=== PATIENT | male | born 1940 | race Hispanic/Latino ===

== ENCOUNTER 2018-08-17 16:20 | Emergency (ER) | payer MEDICARE ==
[2018-08-17 17:27] LABS: APPEARANCE,URINE Cloudy (CLEAR); BASOPHILS % (AUTO) 1.1 % (0.0-5.0); BILIRUBIN,URINE Negative (NEGATIVE); COLOR,URINE Yellow (YELLOW); EOSINOPHILS % (AUTO) 0.6 % (0.0-8.0); GLUCOSE, URINE (UA) Negative (NEGATIVE); HEMATOCRIT 44.8 % (42-54); KETONES,URINE Negative (NEGATIVE); LEUKOCYTE ESTERASE ,URINE Negative (NEGATIVE); LYMPHOCYTES % (AUTO) 30.6 % (21.0-51.0); MEAN CORPUSCULAR HEMOGLOBIN 31.4 pg (27.0-33.0); MEAN CORPUSCULAR VOLUME 92.5 fL (79-99); MONOCYTES % (AUTO) 8.1 % (3.0-13.0); NEUTROPHILS % (AUTO) 59.6 % (40.0-77.0); NITRATE,URINE Negative (NEGATIVE); NUCLEATED RED BLOOD CELLS 0.1 % (0.0-0.19); OCCULT BLOOD,URINE Negative (NEGATIVE); PH,URINE >=9.0 (5.0-8.0); PLATELET COUNT (AUTO) 274 K/uL (130-400); PROTEIN,URINE Negative (NEGATIVE); RED BLOOD CELL COUNT(AUTO) 4.84 MIL/uL (4.50-6.20); WHITE BLOOD COUNT (AUTO) 9.6 K/uL (4.8-10.8)
[2018-08-17 17:36] LABS: AMORPHOUS SEDIMENT,UR Many /LPF (None Seen); BACTERIA,URINE Few /HPF (None Seen); RBC,URINE None Seen /HPF (0-1); SQUAMOUS EPITHELIAL CELL,UR None Seen /HPF (0-2); WBC,URINE 0-1 /HPF (0-1)
[2018-08-17 18:40] LABS: CREATININE 0.3 mg/dL (0.5-1.5); POTASSIUM 4.2 mmol/L (3.5-5.1)
[2018-08-17 18:45] LABS: ALBUMIN 3.6 g/dL (3.5-5.0); BILIRUBIN,TOTAL 0.4 mg/dL (0.2-1.0); TOTAL PROTEIN, SERUM 6.9 g/dL (6.0-8.3)
== END 2018-08-17 20:37 | disposition home or self-care (01) ==
LOC: EDH 16:20
DX: I10 Essential (primary) hypertension (principal); R33.9 Retention of urine, unspecified; G12.22 Progressive bulbar palsy; E78.5 Hyperlipidemia, unspecified
CPT/HCPCS: 36415; 51702; 80053; 81001; 84484; 85025; 93005

== ENCOUNTER 2020-06-19 13:41 | Inpatient (IN) | payer MEDICARE ==
[~2020-06-19] VITALS: Ht 170.2 cm; Wt 81.7 kg
[2020-06-19 14:30] LABS: BASOPHILS % (AUTO) 0.3 % (0.0-5.0); EOSINOPHILS % (AUTO) 0.3 % (0.0-8.0); HEMATOCRIT 49.3 % (42-54); LYMPHOCYTES % (AUTO) 27.6 % (21.0-51.0); MEAN CORPUSCULAR HEMOGLOBIN 30.9 pg (27.0-33.0); MEAN CORPUSCULAR HGB CONC 33.1 g/dL (32.0-36.0); MEAN CORPUSCULAR VOLUME 93.5 fL (79-99); MONOCYTES % (AUTO) 8.6 % (3.0-13.0); NEUTROPHILS % (AUTO) 62.7 % (40.0-77.0); PLATELET COUNT (AUTO) 282 K/uL (130-400); RED BLOOD CELL COUNT(AUTO) 5.27 MIL/uL (4.50-6.20); RED CELL DISTRIBUTION WIDTH 13.5 % (11.0-15.5); WHITE BLOOD COUNT (AUTO) 19.1 K/uL (4.8-10.8)
[2020-06-19 14:41] LABS: CREATININE 0.4 mg/dL (0.5-1.5); POTASSIUM 3.5 mmol/L (3.5-5.1)
[2020-06-19 14:43] LABS: PARTIAL THROMBOPLASTIN TIME 28.9 SEC (26.3-35.5)
[2020-06-19 14:50] LABS: ABG BASE EXCESS -4.3 mmol/L (-2.0-3.0); ABG HCO3 26.1 mmol/L (21.0-28.0); ABG OXYGEN SATURATION 99.6 % (95.0-99.0); ABG PCO2 73 mmHg (35-48)
[2020-06-19 14:50] LABS: ALBUMIN 3.2 g/dL (3.5-5.0); BILIRUBIN,TOTAL 0.6 mg/dL (0.2-1.0); TOTAL PROTEIN, SERUM 7.8 g/dL (6.0-8.3); TROPONIN I 0.1 ng/mL (0.00-0.06)
[2020-06-19] MEDS ORDERED: LEVOFLOXACIN 500 MG/D5W 100 ML 100 ML ONE (15:03)
[2020-06-19] MEDS ORDERED: METHYLPREDNISOLONE SOD SUCC 125MG/2ML VIAL ONE (15:03)
[2020-06-19] MEDS ORDERED: LORAZEPAM 2 MG/ML 1 ML VIAL ONE (15:04)
[2020-06-19 15:20] LABS: APPEARANCE,URINE Clear (CLEAR); BILIRUBIN,URINE Negative (NEGATIVE); COLOR,URINE Yellow (YELLOW); GLUCOSE, URINE (UA) 500 mg/dL (NEGATIVE); KETONES,URINE Negative (NEGATIVE); LEUKOCYTE ESTERASE ,URINE Negative (NEGATIVE); NITRATE,URINE Negative (NEGATIVE); OCCULT BLOOD,URINE Small (NEGATIVE); PH,URINE 6.5 (5.0-8.0); PROTEIN,URINE POS 2+ mg/dL (NEGATIVE); UROBILINOGEN,URINE 0.2 mg/dL (0.2-1.0)
[2020-06-19 15:31] LABS: BACTERIA,URINE Rare /HPF (None Seen); WBC,URINE 0-1 /HPF (0-1)
[2020-06-19 15:32] LABS: MUCUS,URINE Rare LPF (None Seen); SQUAMOUS EPITHELIAL CELL,UR Rare /HPF (0-2)
[2020-06-19 15:53] LABS: INR 0.91 (0.85-1.15); PROTHROMBIN TIME 9.9 SEC (9.6-11.6)
[2020-06-19] MEDS ORDERED: DOXYCYCLINE 100MG+NS 250ML IV SCH (16:00)
[2020-06-19] MEDS ORDERED: LACTULOSE 20 GM/30 ML UDCUP PO PRN (16:00)
[2020-06-19] MEDS ORDERED: GUAIFENESIN-DM 200/20 MG 10 ML PO PRN (16:00)
[2020-06-19] MEDS ORDERED: HYDRALAZINE HCL 20 MG/ML VIAL IV PRN (16:00)
[2020-06-19] MEDS ORDERED: ACETAMINOPHEN 325 MG TAB PO PRN ×2 (16:00)
[2020-06-19] MEDS ORDERED: NITROGLYCERIN 0.4 MG SL TAB SL PRN (16:00)
[2020-06-19] MEDS ORDERED: DIPHENHYDRAMINE HCL 25 MG CAPSULE PO PRN (16:00)
[2020-06-19] MEDS ORDERED: ACETAMINOPHEN-CODEINE 300/30MG TAB PO PRN ×2 (16:00)
[2020-06-19] MEDS ORDERED: MAG HYDROX/AL HYDROX/SIMETH ES 30 ML SUSP UDCUP PO PRN (16:00)
[2020-06-19] MEDS ORDERED: ERGOCALCIFEROL (VITAMIN D2) 50,000 UNIT CAPSULE PO SCH (16:00)
[2020-06-19] MEDS ORDERED: METHYLPREDNISOLONE SOD SUCC 125MG/2ML VIAL IV SCH (16:00)
[2020-06-19] MEDS ORDERED: ONDANSETRON HCL 4 MG/2 ML VIAL IV PRN (16:00)
[2020-06-19] MEDS ORDERED: AZITHROMYCIN 500MG+NS 250ML 250 ML IV SCH (16:00)
[2020-06-19] MEDS ORDERED: CEFTRIAXONE SODIUM 1 GM IVP SCH (16:00)
[2020-06-19] MEDS ORDERED: DEXAMETHASONE SOD PHOSPHATE 4 MG/ML 1ML VIAL IVP SCH (16:00)
[2020-06-19] MEDS ORDERED: ALBUTEROL INHALER 90MCG/INH IH ONE (16:01)
[2020-06-19 16:13] LABS: ABG BASE EXCESS -3.1 mmol/L (-2.0-3.0); ABG HCO3 22.5 mmol/L (21.0-28.0); ABG OXYGEN SATURATION 94.3 % (95.0-99.0); ABG PCO2 42 mmHg (35-48)
[2020-06-19] MEDS ORDERED: DOXYCYCLINE 100MG+NS 250ML 250 ML IV SCH (16:30)
[2020-06-19] MEDS ORDERED: IPRATROPIUM/ALBUTEROL SULFATE 3 ML SOLUTION IH SCH (18:00)
[2020-06-19] MEDS ORDERED: CEFTRIAXONE SODIUM 1 GM ONE (18:37)
[2020-06-19] MEDS ORDERED: DEXAMETHASONE SOD PHOSPHATE 4 MG/ML 1ML VIAL ONE (18:37)
[2020-06-19] MEDS ORDERED: SODIUM CHLORIDE 0.9% 100 ML IV ONE (18:38)
[2020-06-19] MEDS ORDERED: AZITHROMYCIN 500MG+NS 250ML 250 ML IV ONE (19:49)
[2020-06-19] MEDS ORDERED: DOXYCYCLINE 100MG+NS 250ML 250 ML IV ONE (19:49)
[2020-06-19] MEDS ORDERED: BENZONATATE 100 MG CAPSULE PO SCH (21:00)
[2020-06-19] MEDS ORDERED: FAMOTIDINE/PF 20 MG/2 ML VIAL IV SCH (21:00)
[2020-06-19] MEDS ORDERED: ACETYLCYSTEINE 600 MG CAPSULE PO SCH (21:00)
[2020-06-20] MEDS ORDERED: METHYLPREDNISOLONE SOD SUCC 125MG/2ML VIAL ONE (01:46)
[2020-06-20] MEDS ORDERED: CEFTRIAXONE SODIUM 1 GM ONE (04:32)
[2020-06-20 06:29] LABS: BASOPHILS % (AUTO) 0.1 % (0.0-5.0); HEMATOCRIT 47.3 % (42-54); LYMPHOCYTES % (AUTO) 28.3 % (21.0-51.0); MEAN CORPUSCULAR HEMOGLOBIN 30.9 pg (27.0-33.0); MEAN CORPUSCULAR HGB CONC 33.6 g/dL (32.0-36.0); MEAN CORPUSCULAR VOLUME 91.8 fL (79-99); MONOCYTES % (AUTO) 1.2 % (3.0-13.0); NEUTROPHILS % (AUTO) 69.8 % (40.0-77.0); PLATELET COUNT (AUTO) 288 K/uL (130-400); RED BLOOD CELL COUNT(AUTO) 5.15 MIL/uL (4.50-6.20); RED CELL DISTRIBUTION WIDTH 13.2 % (11.0-15.5)
[2020-06-20 06:41] LABS: ALBUMIN 2.9 g/dL (3.5-5.0); BILIRUBIN,TOTAL 0.6 mg/dL (0.2-1.0); CREATININE 0.2 mg/dL (0.5-1.5); CRP QUANTITATIVE 75.1 mg/L (0.00-9.0); POTASSIUM 3.7 mmol/L (3.5-5.1)
[2020-06-20] MEDS ORDERED: DOXYCYCLINE 100MG+NS 250ML 250 ML IV ONE (07:50)
[2020-06-20] MEDS ORDERED: ENOXAPARIN SODIUM 30 MG/0.3 ML SQ SCH (09:00)
[2020-06-20] MEDS ORDERED: ASCORBIC ACID 500 MG TAB PO SCH (09:00)
[2020-06-20] MEDS ORDERED: ZINC SULFATE 220 CAPSULE PO SCH (09:00)
[2020-06-20] MEDS ORDERED: METHYLPREDNISOLONE SOD SUCC 40MG/ML 1ML ONE (09:19)
[2020-06-20] MEDS ORDERED: ENOXAPARIN SODIUM 30 MG/0.3 ML SQ ONE (09:19)
--- NOTE | 2020-06-20 13:10 | NUR ---
HOLD. RECOMMEND NPO. ORDER FOR BEDSIDE SWALLOW EVALUATION RECEIVED. NOT COMPLETED. UPON ARRIVAL, Pt WAS ON BIPAP. ASD PER SON, HE PLACED Pt BACK ON BIPAP BECAUSE HE WAS SHORT OF BREATH. MACHINE MAINTENANCE MECHANIC INTRODUCED HER SELF AND ORDER FOR PROCEDURE. Pt STATED HE WAS NOT ABLE TO SWALLOW OR PARTICIPATE IN EVALUATION AT THIS TIME. MACHINE MAINTENANCE MECHANIC EDUCATED Pt AND SON ON RISKS AND CONSEQUENCES OF ASPIRATION WHEN ON BIPAP. THEY VERBALIZED UNDERSTANDING. EVALUATION TO BE ON HOLD UNTIL PLAN OF CARE IS PROVIDED BY MD DR. ANTON. PER SON, PLAN AN OUTPATIENT WAS FOR A TRACHEOSTOMY. Pt WITH HISTORY OF PEG THAT WAS REMOVED DUE TO NOT TOLERATING FEEDINGS A YEAR AGO. NO FOOD OR LIQUIDS PROVIDED AT THIS TIME. MACHINE MAINTENANCE MECHANIC WILL CONTINUE TO FOLLOW Pt. MACHINE MAINTENANCE MECHANIC COORDINATED WITH NURSE JOSÉ IN ER. RECOMMEND NPO AT THIS TIME. Addendum: 06/20/20 at [address] Amended: Links added.
--- NOTE | 2020-06-20 15:59 | NUR ---
CM NOTE/IA UNSUCCESSFUL UNABLE TO MEET WITH PATIENT AT BEDSIDE, NEXT OF KIN CALLED, JAGDISH GARCIA. NO ANSWER, VOICEMAIL LEFT. CM TO FOLLOW UP FOR IA INFORMATION.
--- NOTE | 2020-06-20 16:41 | NUR ---
RD NOTE Consult received. H&P reviewed. Pt has hx of PEG tube 1 year ago, as per EMR, pt did not tolerate feeds well. Pt is currently on BIPAP. Pt is NPO. FINANCE ADMINISTRATOR unable to conduct speech evaluation at the moment. Pt is still pending FINANCE ADMINISTRATOR evaluation once medically feasible. RD will continue to follow.
== END 2020-06-20 19:37 | disposition short-term general hospital (02) | DRG 56 ==
LOC: EDH 13:41 → EDHIP 15:48 → 2AH 21:01 → EDHIP 21:46
PROVIDERS: ADMIT Hospitalist; ATTEND Hospitalist
PROC: 5A09357 Assistance with Respiratory Ventilation, Less than 24 Consecutive Hours, Continuous Positive Airway Pressure (ICD-10-PCS; principal; 2020-06-19)
PROC: 5A09357 Assistance with Respiratory Ventilation, Less than 24 Consecutive Hours, Continuous Positive Airway Pressure (ICD-10-PCS; 2020-06-20)
DX: G12.21 Amyotrophic lateral sclerosis (principal); J96.21 Acute and chronic respiratory failure with hypoxia; R53.2 Functional quadriplegia; J96.22 Acute and chronic respiratory failure with hypercapnia; E87.2 Acidosis; J44.1 Chronic obstructive pulmonary disease with (acute) exacerbation; Z20.828 Contact with and (suspected) exposure to other viral communicable diseases
CPT/HCPCS: 36415; 36600; 71045; 80053; 81001; 82550; 82728; 82803; 83605; 83615; 83874; 83880; 84145; 84484; 85025; 85378; 85610; 85730; 86140; 86900; 86901; 87040; 87077; 87088; 87186; 87426; 87804; 93005; 94660; G0378; J0456; J0696; J1100; J1650; J1956; J2060; J2920; J2930; J3490; U0003